=== PATIENT | male | born 1995 | race Caucasian/White ===

== ENCOUNTER 2022-01-24 15:32 | Emergency (ER) | payer MEDICAID ==
[~2022-01-24] VITALS: Ht 177.8 cm; Wt 84.0 kg
[2022-01-24] MEDS ORDERED: VALA500T PO (18:32)
[2022-01-24 18:38] VITALS: BP 122/81
== END 2022-01-24 18:39 | disposition home or self-care (01) ==
LOC: ER 15:32
DX: A60.01 Herpesviral infection of penis (principal)
CPT/HCPCS: 99283